=== PATIENT | female | born 1990 | race Caucasian/White ===

== ENCOUNTER 2020-07-26 15:26 | Outpatient (REF) | payer SELFPAY | END 2020-07-26 15:27 | disposition home or self-care (01) | LOC: HO.LAB 15:26 | PROVIDERS: Visit Provider Internal Medicine | DX: Z20.828 Contact with and (suspected) exposure to other viral communicable diseases (principal) | CPT/HCPCS: C9803; U0003 ==

== ENCOUNTER 2020-08-14 08:55 | Outpatient (REF) | payer OTHER, SELFPAY | END 2020-08-14 08:56 | disposition home or self-care (01) | LOC: HO.LAB 08:55 | PROVIDERS: Visit Provider Internal Medicine | DX: Z20.828 Contact with and (suspected) exposure to other viral communicable diseases (principal) | CPT/HCPCS: C9803; U0003 ==

== ENCOUNTER 2022-11-03 14:34 | Emergency (ER) | payer OTHER, SELFPAY ==
--- NOTE | 2022-11-03 14:43 | ED.SKABFB ---
HPI - Skin/Abscess/Foreign Bdy General Chief complaint: Animal Bite Stated complaint: Eyebrow lac Time Seen by Provider: 11/03/22 14:58 Source: patient Mode of arrival: ambulatory History of Present Illness HPI narrative: Patient is a 32 year old female who presents to the ED for evaluation of cat scratch. Cat is vaccinated, up to date. Uncertain of last TDap date, possibly 2 years ago. She reports a deep cut to the right brow. This occured a couple hours prior to arrival. She has just began a course of doxycycline for a tick bite, has 2.5 days, 5 dosages left. Related Data Previous Rx's Medication Instructions Recorded doxycycline hyclate 100 mg capsule 100 mg PO BID 5 days #10 caps 11/03/22 Allergies Allergy/AdvReac Type Severity Reaction Status Date / Time No Known Allergies Allergy Verified 11/03/22 14:47 [No Known Allergies*] Review of Systems Review of Systems: Skin: As noted in HPI Yes all other systems are reviewed and are negative PMFSH Past Medical History Attestation statement: The following information was validated with the patient. Source: old records reviewed Social History Social History Smoked in Last 30 Days: No Use of substances other than those prescribed or required for medical reasons: No Advance Directives: No Advance Directives Information Provided: No Physical Exam Vital Signs: Vital Signs: Last Vital Signs Temp 97.4 F 11/03/22 14:44 Pulse 74 11/03/22 14:44 Resp 18 11/03/22 14:44 BP 132/79 11/03/22 14:44 Pulse Ox 99 11/03/22 14:44 O2 Del Method 11/03/22 14:44 BMI result Body Mass Index 23.6 Appearance: Alert.?Oriented to person, place and time. No acute distress.?Normal affect. Eyes: Pupils equal, round and reactive to light.? EOMI.? CVS: Heart sounds normal. Normal heart rate and rhythm.? Pulses normal.?? Respiratory: No respiratory distress.? Lung sounds clear to auscultation bilaterally?? Skin: Skin warm and dry.? Normal skin color.? Right brow 1 cm laceration, approximately 0.5 cm deep, no active bleeding. Cleanse with normal saline. Edges well approximated. Extremities: No lower extremity edema.? Neuro: Moves all extremities spontaneously. Sensation intact bilaterally. . Ambulates with normal steady gait. Medical Decision Making Medical Decision Making [facility] Narrative: Patient is a 32-year-old female presents emergency department for evaluation of a laceration to the right brow was noted in the HPI s/p cat scratch. Cat is up-to-date on vaccination, Tdap up-to-date within the past 2 years. Laceration is well appearing, edges well approximated, cleanse with normal saline, 2 Steri-Strips applied for closure. She is currently on doxycycline, will provide additional 5 days of coverage for total of 7 days for infection prophylaxis. Discussed worrisome signs and symptoms of wound re-evaluation/signs of infection, advised outpatient follow-up with primary care provider as needed. All questions were answered. Stable for discharge. Differential Diagnosis Differential Diagnoses: The differential diagnosis associated with the presentation includes (Cat scratch, cat bite) Prescription Management I considered prescription management with: Antibiotic Discharge Plan Discharge Clinical Impression: Cat scratch of face Patient Disposition: Home, Self-Care Additional Instructions: As discussed, there is no indication that this requires closure with stitches today. Keep the area clean and dry. The Steri-Strips will fall off when they are ready. Continue taking the doxycycline that you are currently prescribed, an additional 5 days of coverage has been sent to your pharmacy, this will also cover any possible infection from the cat scratch. If you develop redness, pain, swelling, drainage from the scratch than the should be re-evaluated. You may follow-up with her primary care provider as needed. You may return back to emergency department any new or worsening symptoms or concerns. Prescriptions: New doxycycline hyclate 100 mg capsule 100 mg PO BID 5 Days Qty: 10 0RF Referrals: Seamus Bernard MD [Primary Care Provider] -
[2022-11-03 14:44] VITALS: BP 132/79; PULSE 74; RESP 18; TEMP 36.3; O2SAT 99; BMI 23.6
== END 2022-11-03 15:13 | disposition home or self-care (01) ==
PROVIDERS: Emergency Provider Emergency Medicine; PCP Internal Medicine
DX: S00.81XA Abrasion of other part of head, initial encounter (principal); W55.03XA Scratched by cat, initial encounter; Y93.9 Activity, unspecified; Y92.009 Unspecified place in unspecified non-institutional (private) residence as the place of occurrence of the external cause; Y99.9 Unspecified external cause status
CPT/HCPCS: 12011; 99283; 99284